=== PATIENT | male | born 2000 | race Caucasian/White ===

== ENCOUNTER → 2021-09-11 | Outpatient (REF) | LOC: M LABSMTC 10:02 | PROVIDERS: ATTEND Pediatrics | DX: Z11.52 Encounter for screening for COVID-19 (principal) ==

== ENCOUNTER 2023-10-11 20:11 | Emergency (ER) | payer OTHER ==
[~2023-10-11] VITALS: Ht 182.9 cm; Wt 152.1 kg
[2023-10-11 20:11] VITALS: BP 182/96; TEMP 97.4; O2SAT 97
[2023-10-12] MEDS: CEPHALEXIN 500 MG CAP PO ONE (00:17)
[2023-10-12] MEDS: PERCOCET 5MG/325MG TAB PO ONE (00:17)
[2023-10-12] MEDS: ONDANSETRON 4MG ORAL DISINTEGRATING TAB PO ONE (00:17)
[2023-10-12] MEDS ORDERED: CEPH500C PO (00:32)
== END 2023-10-12 00:48 | disposition home or self-care (01) ==
LOC: M ED 20:11
DX: S61.301A Unspecified open wound of left index finger with damage to nail, initial encounter (principal); W29.0XXA Contact with powered kitchen appliance, initial encounter; Y92.9 Unspecified place or not applicable; Y93.89 Activity, other specified; Y99.0 Civilian activity done for income or pay; Z79.2 Long term (current) use of antibiotics